=== PATIENT | female | born 2000 | race Caucasian/White ===

== ENCOUNTER 2021-03-04 01:47 | Inpatient (IN) ==
[2021-03-04] MEDS ORDERED: OXYTOCIN 30 UNITS/500 ML BAG IV PRN ×2 (02:12→03:38)
[2021-03-04] MEDS ORDERED: LACTATED RINGER'S 1,000 ML IV PRN (02:12)
--- NOTE | 2021-03-04 02:16 | History & Physical Report ---
Date of Service March 04, 2021 Assessment & Plan (1) Encounter for supervision of normal in multigravida: Plan: Admit to L&D, desires epidural. Labs, EFM/toco, ok for epidural. History of Present Illness Chief Complaint: ctx Primary Care Provider: Cleveland Jaquez MD 20yo @ 39 2/, ctx. No LOF, no VB. +fm. Ctx Q 2 min. GBS neg. Allergies Allergy/AdvReac Type Severity Reaction Status Date / Time No Known Allergies Allergy Verified 03/01/21 20:13 Home Medications Medication Instructions Recorded Confirmed Type prenat.vits,ashlee,qnk-eemf-vqscp 1 tab PO DAILY 08/14/20 03/01/21 History ferrous sulfate 325 mg (65 mg 325 mg PO DAILY 01/15/21 03/01/21 History iron) tablet (iron) Patient History Medical History (Updated 03/03/21 @ 00:07 by Marisela Brown) Anemia Smoker Varicella vaccination Surgical History (Updated 03/01/21 @ 20:13 by Jessica Molina RN) History of dental surgery S/P wisdom tooth extraction Family History Grandmother (Paternal) Breast cancer Denies family history of Ovarian cancer Colorectal cancer Social History Smoking Status: Current every day smoker Tobacco Type: Cigarettes Cigarettes Per Day: 12; Hx Alcohol Use: No Hx Substance Use: No Preferred Language: Nicaraguan Communication Ability: Effective Set Up / Operator Required: No Beliefs That Will Affect Care: None marital status: Single marital status details: Justin Mondragon (24) Current Living Situation: Family and Significant Other Current Living Situation Comment: lives with fob, son, dog, cats-mother changing litter current occupational status: unemployed Feels Safe at Home: Yes Assistive Devices: None Review of Systems All systems reviewed & are unremarkable except as noted in HPI & below Physical Exam Physical Exam: SVE 4/90/-1 per RN Constitutional: WD/WN, vitals as above Respiratory: normal respiratory effort, lungs clear to auscultation no respiratory distress Cardiovascular: Rate/Rhythm: regular rate and regular rhythm Gastrointestinal (Abdomen): Inspection/Auscultation: abdomen normal to inspection Percussion/Palpation: abdomen soft; abdomen nontender Gravid. No s/s chorio or abruption. Skin: no rashes, warm and dry Psychiatric: A+Ox3, euthymic affect Monitoring External Monitor FHT Cat 1 [place] Q 2 Coding Level of Care Code None Diagnoses Encounter for supervision of normal in multigravida Z34.80
[2021-03-04] MEDS ORDERED: ePHEDrine sulfate 50 MG/ML AMP ONE (02:32)
[2021-03-04] MEDS ORDERED: fentaNYL citrate 100 MCG/2 ML VIAL ONE (02:32)
[2021-03-04] MEDS ORDERED: SODIUM CHLORIDE 0.9% INJ 10 ML VIAL ONE (02:32)
[2021-03-04] MEDS ORDERED: BUPIVACAINE 0.25% 30 ML VIAL ONE (02:32)
[2021-03-04] MEDS ORDERED: fentaNYL 2MCG/ML ROPIVACAINE 1.25MG/ML 100 ML BAG EPI ONE (02:33)
[2021-03-04 02:57] LABS: Hematocrit (blood only) 31.5 % (37-47); Hemoglobin 9.5 g/dL (12.0-16.0); Mean Corpuscular Hemoglobin 22.8 pg (25-34); Mean Corpuscular Hgb Conc 30.2 g/dL (32-36); Mean Corpuscular Volume 75.7 fL (80-100); Mean Platelet Volume 11.1 fL (7.4-10.4); Platelet Count 218 K/uL (130-400); RDW Coefficient of Variation 16.4 % (11.5-14.5); RDW Standard Deviation 45.2 fL (36.4-46.3); Red Blood Count 4.16 M/uL (4.2-5.4); White Blood Count 11.86 K/uL (4.8-10.8)
[2021-03-04] MEDS ORDERED: MoRPHine SULFATE 10 MG/ML CARP/VIAL ONE (03:23)
[2021-03-04] MEDS ORDERED: MoRPHine SULFATE 4 MG/ML 1 ML CARP\\VIAL IV STA (03:36)
--- NOTE | 2021-03-04 03:37 | Delivery Summary ---
Vaginal Delivery Summary Date of Service March 04, 2021 Vaginal Delivery Summary [facility] Vaginal Delivery Summary: Pre-delivery diagnoses: 20yo @ 39 2 Post-delivery diagnoses: same Procedure: spontaneous vaginal delivery Surgeon: Essie Montiel DO Complications: none Findings: Viable male . Apgars: 8/9. Weight pending, please see nursery records. Estimated blood loss: 300ml Description of delivery: The patient arrived in labor and quickly progressed to complete. No time for epidural. She began to push, unable to stop. Head delivered prior to my walking into the room, and as I was entering, body spontaneously delivered. RN unwrapped baby from body cord. Large amount of meconium on mom's abdomen, patient's water never obviously broke, but baby did not deliver en cull, per RN. The baby was placed on mother's abdomen and a spontaneous cry was heard. Delayed cord clamping was employed, and the cord was doubly clamped and cut. Cord blood was obtained. The placenta was delivered spontaneously intact with a 3-vessel cord. No IV access yet, so IM pitocin given. IM methergine. The vagina was swept of clots and debris. Clots removed from uterus and bleeding improved. The uterus became firm. The cervix, vagina inspected with Sepulveda retractors and perineum was inspected and no lacerations were noted. Excellent hemostasis was observed. IV team was able to establish IV access, IV pitocin given. The mother and baby are recovering in stable and good condition in the room. Sponge and instrument counts were correct x 2. Essie Montiel DO [facility] Vaginal Delivery Charge Vaginal Delivery Codes: 78321 global code for the antepartum, delivery, and post- Delivery Type Details: [facility]
[2021-03-04] MEDS ORDERED: OXYTOCIN 10 UNITS/ML VIAL IM ONE (03:38)
[2021-03-04] MEDS ORDERED: ACETAMINOPHEN 325 MG TAB PO PRN (03:38)
[2021-03-04] MEDS ORDERED: SUPERCREAM 0.870% 15 GM JAR EXT PRN (03:38)
[2021-03-04] MEDS ORDERED: HYDROCORTISONE ACETATE 25 MG SUPP PR PRN (03:38)
[2021-03-04] MEDS ORDERED: DIPHTHERIA/TETANUS/PERTUSSIS 0.5 ML SYR/VIAL IM ONE (03:38)
[2021-03-04] MEDS ORDERED: METHYLERGONOVINE MALEATE 0.2 MG/ML AMP IM ONE (03:38)
[2021-03-04] MEDS ORDERED: BENZOCAINE 20% AER SPR 82.5 GM CAN EXT PRN (03:38)
[2021-03-04] MEDS ORDERED: oxyCODONE/ACETAMINOPHEN 5mg/325mg TAB PO PRN (03:38)
[2021-03-04] MEDS: IBUPROFEN 600 MG TAB PO PRN ×3 (08:51→20:14)
[2021-03-04] MEDS: DOCUSATE SODIUM 100 MG CAP PO SCH ×2 (08:52→20:14)
[2021-03-04] MEDS: PRENATAL VITAMIN 1 TAB PO SCH (08:53)
[2021-03-05] MEDS: IBUPROFEN 600 MG TAB PO PRN ×2 (00:06→09:02)
--- NOTE | 2021-03-05 05:16 | Obstetrical Progress Note ---
Date of Service <Jimmie Marsh - Last Filed: 03/05/21 06:57> March 05, 2021 Assessment & Plan <Jimmie Marsh DO - Last Filed: 03/05/21 06:57> (1) Encounter for care and examination after delivery: - PPD1 - A+, GBS-, RI - Vitals WNL. - Bottle feeding. - Discussed discharge with patient, patient would like to go home today after son's circumcision. <Kaylynn Damian MD - Last Filed: 03/05/21 07:00> (1) Encounter for care and examination after delivery: Subjective <Jimmie Trujillovickiferoz - Last Filed: 03/05/21 06:57> Ambulation: ambulating normally Voiding: no voiding problems Passing Gas:: Yes Diet Tolerance:: regular diet Lochia:: Small Feeding Type:: bottle feeding Current Pain Level(1-10): 0 Review of Systems Some slight abdominal cramping. Denies fever, chills, sweats Denies shortness of breath, difficulty breathing, chest pain, palpitations, chest pressure. Denies breast pain. Denies dysuria. Denies headache or changes in vision Physical Exam <Jimmie Marsh - Last Filed: 03/05/21 06:57> General: Alert, oriented. No acute distress. Cardiac: Regular rate and rhythm, no murmurs/rubs/gallops. Respiratory: Clear to auscultation bilaterally a/p, no wheezes/rales/rhonchi. No increased work of breathing. Symmetrical chest rise. No respiratory distress. Abdomen: Soft, nontender, nondistended. Bowel sounds present. Uterus: Uterine fundus firm, palpable 2 cm below umbilicus. Lower Extremities: No lower extremity edema or swelling. No deep calf pain. Tamara's negative bilaterally Results & Data ([facility]) <Jimmie Trujillovickiferoz - Last Filed: 03/05/21 06:57> Vital Signs (Past 12 Hours) Vital Signs Temp Pulse Resp BP Pulse Ox 03/04/21 23:55 36.9 C 70 16 116/79 98 03/04/21 20:10 36.7 C 75 18 123/85 <Kaylynn Damian MD - Last Filed: 03/05/21 07:00> Co-Signing Physician Notes Resident Physician Supervision Note: I interviewed and examined the patient. Discussed with Dr. Marsh and agree with findings and plan as documented in the note. Any exceptions or clarific ations are listed here: PP1 s/p , doing well. VSS, exam benign and wnl. Meeting all pp milestones. Desires d/c home today, ok from OB standpoint. F/u 6 wks for pp visit Documented By: Kaylynn Damian MD Resident Activity Tracking <Jimmie Marsh DO - Last Filed: 03/05/21 06:57> Resident Involvement: Resident Care Provided Care Provided: OB Delivery
[2021-03-05 06:31] LABS: Hematocrit (blood only) 27.7 % (37-47); Hemoglobin 8.3 g/dL (12.0-16.0)
[2021-03-05] MEDS ORDERED: FERROUS SULFATE 325 MG TAB PO SCH (09:00)
[2021-03-05] MEDS: PRENATAL VITAMIN 1 TAB PO SCH (09:02)
[2021-03-05] MEDS: DOCUSATE SODIUM 100 MG CAP PO SCH (09:03)
[2021-03-05] MEDS ORDERED: bisacodyL 5 MG TABEC PO SCH (20:00)
[2021-03-06] MEDS ORDERED: bisacodyL 10 MG SUPP PR PRN (03:38)
== END 2021-03-05 15:00 | disposition home or self-care (01) | DRG 807 ==
LOC: OPB 01:47 → 4S1 01:52 → 4S2 06:30

== ENCOUNTER 2022-03-06 07:39 | Inpatient (IN) ==
[2022-03-06] MEDS ORDERED: OXYTOCIN 30 UNITS/500 ML BAG IV PRN ×3 (08:00→18:15)
[2022-03-06] MEDS: LACTATED RINGER'S 1,000 ML IV PRN ×2 (08:39→12:41)
--- NOTE | 2022-03-06 08:57 | History & Physical Report ---
Date of Service March 06, 2022 Assessment & Plan (1) History of precipitous delivery: (2) Short interval between pregnancies affecting , antepartum: (3) Anxiety: (4) Depression: (5) Encounter for supervision of normal in multigravida, antepartum: (6) Anemia: (7) Smoker: Plan Admit to L+D for eIOL Plan to start Pitocin Covid test negative A+, GBS-, Rubella immune Fetus cat 1, +FHT moderate variability, no early or late decelerations Admission and Anticipated Discharge Date Admission Date: March 06, 2022 History of Present Illness Chief Complaint: eIOL Primary Care Provider: Cleveland Jaquez MD Regla is a 21 y/o female who is 39 weeks GA who presents for eIOL due to history of precipitous delivery. Her was complicated by short interval , anemia, and the patient is a current smoker. 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 Today she denies any leakage of fluid or bleeding, admits to some mucus/discharge. States she is feeling well today but feeling a bit anxious. OB Labs: Blood Type A Positive 09/01/21 Antibody Screen NEGATIVE 09/01/21 Hemoglobin 11.7 g/dL (12.0-16.0) L 09/01/21 Hematocrit 37.6 % (37-47) 09/01/21 Mean Corpuscular Volume 79.2 fL (80-100) L 09/01/21 Platelet Count 350 K/uL (130-400) 09/01/21 Rubella IgG Antibody Immune (Immune) 09/01/21 Rapid Plasma Reagin Nonreactive (Nonreactive) 09/01/21 Hepatitis B Surface Antigen Neg (Neg) 09/01/21 HIV (1&2) Ab and P24 Ag, 4th Gener Neg (Neg) 09/01/21 Glucose 1 Hour 50 gm Load 84 mg/dl (70-130) 12/18/20 OB Optional Labs: Chlamydia trachomatis RNA NOT DETECTED (NOT DETECTED) 09/01/21 Neisseria gonorrhoeae RNA NOT DETECTED (NOT DETECTED) 09/01/21 Labs Reviewed: declined cf/sma/afp cfdna-low risk--mln Allergies Allergy/AdvReac Type Severity Reaction Status Date / Time No Known Allergies Allergy Verified 03/05/22 15:46 Home Medications Medication Instructions Recorded Confirmed Type [id number] 400 mcg-om3 35 mg-dha 25 1 tab PO DAILY 08/15/21 03/06/22 History mg-epa 5 mg-fish oil chewable tablet gabapentin 300 mg capsule 300 mg PO BID 12/31/21 03/06/22 History Patient History Medical History (Updated 09/01/21 @ 14:48 by Kandi Mack MD, FACOG) Anemia Anemia affecting hemorrhage Precipitous delivery Smoker Varicella vaccination Surgical History (Updated 03/01/21 @ 20:13 by Jessica Molina RN) History of dental surgery S/P wisdom tooth extraction Family History (Updated 08/15/21 @ 11:14 by Lona NGO, BENSON) Grandmother (Paternal) Breast cancer Hypertension Uncle Bladder cancer Autism Grandfather (Maternal) Non-Hodgkin lymphoma Brother Autism Mother Autism Other Myocardial infarction Denies family history of Ovarian cancer Diabetes Colorectal cancer Social History (Updated 08/15/21 @ 11:16 by Lona NGO RN) Smoking Status: Current every day smoker Tobacco Type: Cigarettes Age Started Using Tobacco: 15; packs per day: 0.5; Cigarettes Per Day: 20; Second Hand Exposure: No; Hx Alcohol Use: No Hx Substance Use: No Preferred Language: Arabic Communication Ability: Effective Folder Stitcher Operator Required: No Beliefs That Will Affect Care: None marital status: Single marital status details: Justin Mondragon (25) [phone] Current Living Situation: Family and Significant Other Current Living Situation Comment: FOB, 2 kids, FOB mother and dog & cats-mother changing litter current occupational status: unemployed How many Children do You have: 3 How many Children do You have Comment: first son lives with patients mother in [place] Other Information That Helps Us Care for You: No Feels Safe at Home: Yes Safety Concerns: Feels Safe At This Time Assistive Devices: None OB History Had 3 previous pregnancies (2016, 2018, 2020), all delivered vaginally. Her most recent delivery in 2020 was a precipitous delivery and was complicated by PPH. 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 Damian) 3 cm, + cervical effacement (75%) and + station -2 OB Exam Monitor Tracing: + external FHT monitor used, + external uterine monitor used, + category I and + normal FHT variability; no early decelerations present and no late decelerations present Results & Data ([facility]) Vital Signs (Past 12 Hours) Vital Signs Temp Pulse Resp BP 03/06/22 08:55 36.5 C 18 03/06/22 08:21 96 H 125/66 03/06/22 07:51 18 Supervising Physician Co-Signing Physician Notes Resident Physician Supervision Note: I interviewed and examined the patient. Discussed with Dr. Agarwal and agree with findings and plan as documented in the note. Any exceptions or clarifications are listed here: 21 y/o at 39 wga presents for eIOL. +FM; denies ctx, LOF, VB. VSS, SVE /-2. Cat 1. Will start pit, epidural PRN. T&S due to significant anemia Documented By: Kaylynn Damian MD Resident Activity Tracking Resident Involvement: Resident Care Provided Care Provided: OB Delivery
[2022-03-06 09:04] LABS: Hematocrit (blood only) 28.8 % (34.1-44.9); Hemoglobin 8.2 g/dl (12.0-16.0); Mean Corpuscular Hemoglobin 20.6 pg (25.0-34.0); Mean Corpuscular Hgb Conc 28.5 g/dL (32.0-36.0); Mean Corpuscular Volume 72.2 fL (80.0-100.0); Mean Platelet Volume 11.5 fL (9.4-12.3); Platelet Count 160 K/uL (130-400); RDW Coefficient of Variation 16.9 % (11.5-14.5); RDW Standard Deviation 43.6 fL (36.4-46.3); Red Blood Count 3.99 M/uL (3.93-5.22); White Blood Count 10.14 K/ul (4.8-10.8)
[2022-03-06 09:05] LABS: Platelet Estimate Normal (Normal)
[2022-03-06] MEDS ORDERED: ePHEDrine sulfate 50 MG/ML AMP ONE (12:15)
--- NOTE | 2022-03-06 12:15 | Labor Progress Brief Note ---
Date of Service March 06, 2022 Subjective Starting to be uncomfortable, not sure if she wants epidural yet Assessment & Plan (1) Encounter for supervision of normal in multigravida, antepartum: (2) Anemia: Plan 21 y/o at 39 wga presents for eIOL VSS Fetus cat 1 Labor - pit at 10 GBS neg desires epidural now Admission and Anticipated Discharge Date Admission Date: March 06, 2022 Physical Exam Genitourinary: Manual OB Exam: + cervical dilation 4 cm, + cervical effacement 70% and + station -2 OB Exam Monitor Tracing: + external FHT monitor used, + external uterine monitor used (q3-4) and + category I (120/mod/+accel/-decel) Results & Data ([facility]) Vital Signs (Past 12 Hours) Vital Signs Temp Pulse Resp BP 03/06/22 08:55 97.7 F 18 03/06/22 11:35 97.7 F 80 18 127/73 03/06/22 10:19 85 132/75 03/06/22 08:21 96 H 125/66 03/06/22 07:51 18 Coding Level of Care Code None Diagnoses Encounter for supervision of normal in multigravida, antepartum Z34.80 Anemia D64.9
[2022-03-06] MEDS ORDERED: LIDOCAINE 2%/EPINEPHRINE 1:200,000 20 ML SDV ONE (12:16)
[2022-03-06] MEDS ORDERED: fentaNYL 2MCG/ML ROPIVACAINE 1.25MG/ML 100 ML BAG EPI ONE (12:16)
[2022-03-06] MEDS ORDERED: BUPIVACAINE 0.25% 30 ML VIAL ONE (12:16)
[2022-03-06] MEDS ORDERED: fentaNYL citrate 100 MCG/2 ML VIAL ONE (12:16)
[2022-03-06] MEDS ORDERED: SODIUM CHLORIDE 0.9% INJ 10 ML VIAL ONE (12:16)
[2022-03-06] MEDS ORDERED: ONDANSETRON INJ 2 MG/ML 2 ML VIAL IV PRN (13:10)
[2022-03-06] MEDS ORDERED: diphenhydrAMINE 50 MG/ML VIAL IV PRN (13:10)
[2022-03-06] MEDS ORDERED: ePHEDrine sulfate 50 MG/ML AMP IV PRN (13:10)
[2022-03-06] MEDS ORDERED: NALOXONE HCL 1 MG in SODIUM CHLORIDE 0.9% 1000ML 1,000 ML IV PRN (13:10)
[2022-03-06] MEDS ORDERED: NALOXONE HCL 0.4 MG/1 ML VIAL/CARP IV PRN (13:10)
[2022-03-06] MEDS ORDERED: fentaNYL 2MCG/ML ROPIVACAINE 1.25MG/ML 100 ML BAG EPI PRN (13:10)
[2022-03-06] MEDS ORDERED: NALBUPHINE HCL INJ 10 MG/ML AMP IV PRN (13:10)
--- NOTE | 2022-03-06 13:10 | Anesthesiology Consultation ---
Date of Service March 06, 2022 Assessment & Plan Chart Review Chart Review: Patient NOT seen in Pre Admission Testing and Acceptable Risk for Labor Epidural Consults Requested none ASA ASA2 Proposed Anesthesia Anesthesia Type: Labor Epidural Risk / Benefits Reviewed With: PT / POA / Parent / Guardian, Accepts Plan and Informed Consent Obtained History Height/Weight Height: 5 ft 3 in Weight: 94.801 kg Allergies Allergy/AdvReac Type Severity Reaction Status Date / Time No Known Allergies Allergy Verified 03/05/22 15:46 Medications Home Medications Medication Instructions Recorded Confirmed Last Taken [id number] 400 mcg-om3 35 mg-dha 25 1 tab PO DAILY 08/15/21 03/06/22 Unknown mg-epa 5 mg-fish oil chewable tablet gabapentin 300 mg capsule 300 mg PO BID 12/31/21 03/06/22 03/06/22 08:00 Active Medications Generic Name Dose Route Start Last Admin Trade Name Freq PRN Reason Stop Dose Admin Oxytocin 30 units in 500 mls @ 10 mls/hr 03/06/22 08:00 03/06/22 11:32 Pitocin IV 03/08/22 07:59 0.6 units/hr .Q24H PRN 10 mls/hr Labor Induction/Augmentation Titration Protocol 0.6 UNITS/HR Lactated Ringer's 1,000 mls @ 125 mls/hr 03/06/22 08:00 03/06/22 12:41 Lr IV 03/08/22 07:59 125 mls/hr .Q8H PRN Administration L&D Protocol Protocol Past Medical History Medical History (Updated 09/01/21 @ 14:48 by Kandi Mack MD, FACOG) Anemia Anemia affecting hemorrhage Precipitous delivery Smoker Varicella vaccination Exercise / Class Metabolic Activity II 4-5 Yardwork/Stairs/Walk up hill Past Family History Family History (Updated 08/15/21 @ 11:14 by Lona NGO RN) Grandmother (Paternal) Breast cancer Hypertension Uncle Bladder cancer Autism Grandfather (Maternal) Non-Hodgkin lymphoma Brother Autism Mother Autism Other Myocardial infarction Denies family history of Ovarian cancer Diabetes Colorectal cancer Past Surgical History Surgical History (Updated 03/01/21 @ 20:13 by Jessica Molina RN) History of dental surgery S/P wisdom tooth extraction Past Anesthesia History No Hx of Anesthesia Complications and No Family Hx of Anesthesia Complications History of PONV No Hx of PONV and No Hx of Motion Sickness Social History Smoking Status: Current every day smoker tobacco type: cigarettes Smoking cigarettes per day: 20 Hx Alcohol Use: No Hx Substance Use: No substance use type: does not use Physical Exam Vital Signs Last Vital Signs Temp 36.5 C 03/06/22 11:35 Pulse 75 03/06/22 13:07 Resp 18 03/06/22 12:35 BP 116/60 03/06/22 13:07 Pulse Ox 100 03/06/22 13:03 ENMT Mouth: no dentition abnormality Thyromental Distance: > or= 3.5 Finger Breadths Mallampati Class: II Neck normal visual inspection Respiratory normal respiratory effort Auscultation: lungs clear to auscultation bilaterally Cardiovascular Rate/Rhythm: regular rate and regular rhythm Psychiatric Orientation: alert Testing Laboratory Results 03/06/22 08:12 Blood Type A Positive 03/06/22 09:54 Antibody Screen NEGATIVE 03/06/22 09:54
--- NOTE | 2022-03-06 17:23 | Delivery Summary ---
Vaginal Delivery Summary Date of Service March 06, 2022 Vaginal Delivery Summary Used 39+ weeks initially 3 cm Pitocin started requested epidural artificial rupture of membranes and then delivered over an intact peritoneum and anterior occiput but position patient pushed for only 1 contraction mouth and then nares suctioned clear fluid no nuchal cord gentle traction no excessive force live vigorous male cord clamped and cut cord blood obtained placenta removed with traction IV Pitocin started uterine tone improved estimated blood loss 150 mL sponge and instrument counts correct
[2022-03-06] MEDS ORDERED: miSOPROStoL 200 MCG TAB PR ONE (17:48)
[2022-03-06] MEDS ORDERED: oxyCODONE/ACETAMINOPHEN 5mg/325mg TAB PO PRN (18:15)
[2022-03-06] MEDS ORDERED: HYDROCORTISONE ACETATE 25 MG SUPP PR PRN (18:15)
[2022-03-06] MEDS ORDERED: bisacodyL 10 MG SUPP PR PRN (18:15)
[2022-03-06] MEDS ORDERED: BENZOCAINE 20% AER SPR 82.5 GM CAN EXT PRN (18:15)
[2022-03-06] MEDS ORDERED: DIPHTHERIA/TETANUS/PERTUSSIS 0.5 ML SYR/VIAL IM ONE (18:15)
[2022-03-06] MEDS: ACETAMINOPHEN 325 MG TAB PO PRN (19:11)
[2022-03-06] MEDS: IBUPROFEN 600 MG TAB PO PRN ×2 (19:11→22:53)
--- NOTE | 2022-03-06 19:48 | Anesthesia Procedure Note ---
Date of Service March 06, 2022 Anesthesia Post Epidural Note Vital Signs Vital Signs: Temp Pulse Resp BP Pulse Ox 37.0 C 91 H 18 122/61 98 03/06/22 17:35 03/06/22 19:46 03/06/22 18:35 03/06/22 19:46 03/06/22 17:08 Notes Mental Status: alert / awake / arousable Nausea / Vomiting: adequately controlled Pain: adequately controlled Airway Patency, RR, SpO2: stable & adequate BP & HR: stable & adequate Hydration State: stable & adequate Neuraxial Anesthesia: was administered and sensory block is resolving Anesthetic Complications: no major complications apparent and Pt Satisfied with anesthetic care Epidural: Removed without complications and With tip intact
[2022-03-06] MEDS: GABAPENTIN 300 MG CAP PO SCH (21:22)
[2022-03-06] MEDS: DOCUSATE SODIUM 100 MG CAP PO SCH ×2 (22:17→22:53)
[2022-03-07] MEDS: IBUPROFEN 600 MG TAB PO PRN ×4 (04:06→12:19)
--- NOTE | 2022-03-07 06:45 | Obstetrical Progress Note ---
Date of Service <Viridiana Agarwal DO - Last Filed: 03/07/22 07:47> March 07, 2022 Assessment & Plan <Viridiana Agarwal DO - Last Filed: 03/07/22 07:47> (1) History of precipitous delivery: (2) Short interval between pregnancies affecting , antepartum: (3) Encounter for supervision of normal in multigravida, antepartum: (4) Smoker: (5) Anemia: Plan s/p PPD 1: -Vital signs reviewed and WNL, Tmax at 37.1 -Hemoglobin reviewed, 8.2 (03/06) -A+, GBS-, rubella immune -Encourage ambulation, monitor and treat pain PRN, monitor lochia -Return to regular diet -Will monitor the chest heaviness today, if improves may discharge after 24 hr from delivery. <Poornima Dawn MD, FACOG - Last Filed: 03/07/22 07:48> (1) History of precipitous delivery: (2) Short interval between pregnancies affecting , antepartum: (3) Encounter for supervision of normal in multigravida, antepartum: (4) Smoker: (5) Anemia: Subjective <DO Trent Templeton Last Filed: 03/07/22 07:47> Regla is a 21 y/o female who is PPD #1 following delivery at 39 weeks. Her was complicated by history of precipitous delivery, short interval , anemia, and status as a current smoker. Patient was seen and examined at bedside. She reports feeling well overall this morning. Some abdominal cramping but pain well managed on analgesics. Some burning with urintation. Tolerating meals overnight and able to ambulate some. Has some persistent lochia with some improvement this morning. Admits to some chest heaviness/trouble breathing when she stands, states this started after delivery. No issue while laying in bed, only occurs while standing/ambulating. Constitutional: no fever, no chills or no sweats Respiratory: no cough, no dyspnea or no wheezing Cardiovascular: no palpitations or no calf pain Breast: no breast pain Neurologic: no headache(s) Physical Exam <Viridiana Agarwal DO - Last Filed: 03/07/22 07:47> Constitutional WD/WN, vitals as above no acute distress Respiratory Auscultation: lungs clear to auscultation bilaterally; no rales, no rhonchi and no wheezes Cardiovascular RRR, no murmur, no edema Extremities: no calf tenderness and no edema Negative Tamara's sign bilaterally. Gastrointestinal (Abdomen) Inspection/Auscultation: normal bowel sounds Genitourinary Uterine fundus firm, palpable below the umbilicus. Results & Data ([facility]) <Viridiana Agarwal DO - Last Filed: 03/07/22 07:47> Vital Signs (Past 12 Hours) Vital Signs Temp Pulse Pulse Resp BP BP Pulse Ox 03/07/22 04:10 36.4 C L 75 18 122/84 100 03/06/22 23:00 37 C 93 H 18 131/84 03/06/22 20:40 37.1 C 91 H 18 118/79 03/06/22 19:56 88 117/58 L 03/06/22 19:46 91 H 122/61 03/06/22 19:36 86 122/60 03/06/22 19:26 85 125/73 03/06/22 19:16 85 128/72 03/06/22 19:06 88 126/72 03/06/22 18:56 86 123/72 03/06/22 18:46 97 H 122/73 <Poornima Dawn MD, FACOG - Last Filed: 03/07/22 07:48> Co-Signing Physician Notes Resident Physician Supervision Note: I was present with [Name of resident] during the history and exam. I discussed the case with the resident and agree with the findings and plan as documented in the note. Any exceptions or clarifications are listed here: [None] Documented By: Poornima Dawn MD, FACOG Resident Activity Tracking <Viridiana Agarwal DO - Last Filed: 03/07/22 07:47> Resident Involvement: Resident Care Provided Care Provided: OB Delivery
[2022-03-07] MEDS ORDERED: PRENATAL VITAMIN 1 TAB PO SCH (08:00)
[2022-03-07] MEDS: DOCUSATE SODIUM 100 MG CAP PO SCH (08:08)
[2022-03-07] MEDS: GABAPENTIN 300 MG CAP PO SCH (08:08)
[2022-03-07 10:11] LABS: Hematocrit (blood only) 24.5 % (34.1-44.9); Mean Corpuscular Hemoglobin 20.5 pg (25.0-34.0); Mean Corpuscular Hgb Conc 28.6 g/dL (32.0-36.0); Mean Corpuscular Volume 71.8 fL (80.0-100.0); Mean Platelet Volume 11.8 fL (9.4-12.3); Platelet Count 163 K/uL (130-400); RDW Standard Deviation 43.8 fL (36.4-46.3); Red Blood Count 3.41 M/uL (3.93-5.22); White Blood Count 11.37 K/ul (4.8-10.8)
[2022-03-07] MEDS ORDERED: SODIUM CHLORIDE 0.9% 250 ML IV PRN (10:31)
--- NOTE | 2022-03-07 10:33 | Communication Note ---
Date of Service: March 07, 2022 Pt's H/H returned at 7. Met w/ pt - she notes more tiredness, some chest heaviness when she is ambulating/up for longer periods of time. Denies any at r est. Small to mod lochia. Denies lightheadedness/dizziness. VSS. Discussed suspect her symptoms are related to anemia and offered blood transfusion given symptoms. Discussed risks including infection, allergic reaction, trali. Discussed risks of declining including worsening fatigue, SOB, palpitations, stroke, heart attack. Discussed alternatives of iron supplementation however would not take effect as quickly. After extensive discussion, pt desires to proceed with blood transfusion as she strongly desires d/c home today. Consent signed after all questions answered to apparent satisfaction. Will re-assess following transfusion to determine if post transfusion lab indicated, discharge status, etc
[2022-03-07] MEDS ORDERED: diphenhydrAMINE Capsule 25 MG CAP PO ONE (10:39)
[2022-03-07] MEDS: ACETAMINOPHEN 325 MG TAB PO PRN (11:02)
--- NOTE | 2022-03-07 15:28 | Communication Note ---
Date of Service: March 07, 2022 Pt re-evaluated following 1u pRBC transfusion. A little groggy from pre- medicating benadryl but going away. Has been up multiple times and denies any of the previously noted chest heaviness that she had reported previously, c/w suspicion that symptoms are anemia related rather than cardiac or pulm in nature. Will get post transfusion H/H but as she is feeling much better I think still ok to d/c later today. Discussed importance of iron while at home and she verbalized understanding
[2022-03-07 15:56] LABS: Hematocrit (blood only) 26.9 % (34.1-44.9); Hemoglobin 8.3 g/dl (12.0-16.0)
[2022-03-07] MEDS ORDERED: bisacodyL 5 MG TABEC PO SCH (20:00)
== END 2022-03-07 18:42 | disposition home or self-care (01) | DRG 807 ==
LOC: 4S1 07:39 → 4E2 20:10

== ENCOUNTER 2023-08-27 08:04 | Inpatient (IN) ==
[2023-08-27] MEDS ORDERED: LIDOCAINE 1% LOCAL 20 ML VIAL INFIL PRN (08:13)
[2023-08-27 08:53] LABS: Hematocrit (blood only) 31.7 % (37.0-47.0); Hemoglobin 9.1 g/dl (12.0-16.0); Mean Corpuscular Hemoglobin 20.6 pg (25.0-34.0); Mean Corpuscular Hgb Conc 28.7 g/dL (32.0-36.0); Mean Corpuscular Volume 71.9 fL (80.0-100.0); Mean Platelet Volume 11.4 fL (9.4-12.4); Platelet Count 206 K/uL (130-400); RDW Standard Deviation 46.1 fL (36.4-46.3); Red Blood Count 4.41 M/uL (4.20-5.40); White Blood Count 8.59 K/ul (4.8-10.8)
[2023-08-27] MEDS ORDERED: SODIUM CHLORIDE 0.9% 250 ML IV PRN (08:56)
[2023-08-27] MEDS: LACTATED RINGER'S 1,000 ML IV PRN (10:03)
[2023-08-27] MEDS: OXYTOCIN 30 UNITS/NSS 30 UNITS/500 ML BAG IV PRN ×3 (10:05→18:42)
--- NOTE | 2023-08-27 13:45 | History & Physical Report ---
Date of Service August 27, 2023 Assessment & Plan (1) Tobacco smoking affecting : Plan: Regla is a 23-year-old G5, P4 currently at 39 weeks 0 days gestational age presents for elective induction of labor. 1. Fetus: Category 1 tracing 2. Labor: Will start with oxytocin and will AROM when appropriate. 3. GBS negative 4. Vitals within normal limits (2) History of precipitous delivery: (3) Encounter for supervision of normal in multigravida, antepartum: Admission and Anticipated Discharge Date Admission Date: August 27, 2023 History of Present Illness Primary Care Provider: Cleveland Jaquez MD Regla is a 23-year-old G5, P4 currently at 39 weeks 0 days gestational age presents for elective induction of labor for history of precipitous delivery. has been complicated by tobacco use during and noncompliance with recommended care. OB Labs: Blood Type A Positive 02/24/23 Antibody Screen NEGATIVE 02/24/23 Hemoglobin 11.4 g/dl (12.0-16.0) L 02/24/23 Hematocrit 35.9 % (37.0-47.0) L 02/24/23 Mean Corpuscular Volume 79.2 fL (80.0-100.0) L 02/24/23 Platelet Count 263 K/uL (130-400) 02/24/23 Rubella IgG Antibody Equivocal (Immune) L 02/24/23 Rapid Plasma Reagin Nonreactive (Nonreactive) 02/24/23 Hepatitis B Surface Antigen Neg (Neg) 09/01/21 Hepatitis B Surface Antigen. NON-REACTIVE (NON-REACTIVE) 02/24/23 Hepatitis C Antibody Neg (Neg) 09/01/21 Hepatitis C Antibody (EIA) NON-REACTIVE (NON-REACTIVE) 02/24/23 HIV (1&2) Ab and P24 Ag, 4th Gener Neg (Neg) 09/01/21 HIV (1&2) Ag and Ab Confirmation NON-REACTIVE (NON-REACTIVE) 02/24/23 Glucose 1 Hour 50 gm Load 109 mg/dl (70-130) 12/31/21 OB Optional Labs: Chlamydia trachomatis RNA Not Detected (NotDetected) 01/27/23 Neisseria gonorrhoeae RNA Not Detected (NotDetected) 01/27/23 Labs Reviewed: declined cf/sma/afp cfdna-low risk--mln msafp declines --smp Allergies Allergy/AdvReac Type Severity Reaction Status Date / Time No Known Allergies Allergy Verified 08/26/23 11:00 Home Medications Medication Instructions Recorded Confirmed Type gabapentin 800 mg tablet 800 mg PO BID 08/27/23 08/27/23 History Patient History Medical History (Updated 08/27/23 @ 13:44 by Jalen Ochoa MD) Degenerative joint disease Lumbar herniated disc Osteoarthritis Bipolar 1 disorder Panic Precipitous delivery hemorrhage Encounter for care and examination after delivery Anemia Smoker Anemia affecting Encounter for supervision of normal in multigravida Varicella vaccination Surgical History History of dental surgery S/P wisdom tooth extraction Family History (Updated 01/25/23 @ 10:57 by Alyson Mack, BENSON) Grandmother (Paternal) Breast cancer Hypertension Colorectal cancer Uncle Autism Bladder cancer Grandfather (Maternal) Non-Hodgkin lymphoma Brother Autism Mother Autism Other Myocardial infarction Denies family history of Ovarian cancer Diabetes Social History (Updated 01/25/23 @ 10:58 by Alyson Mack RN) Smoking Status: Current every day smoker Tobacco Type: Cigarettes Age Started Using Tobacco: 15; packs per day: 0.5; Cigarettes Per Day: 10; Second Hand Exposure: No; Do You Dip or Chew Tobacco: No; Hx Alcohol Use: No Hx Substance Use: No Preferred Language: Kyrgyz Communication Ability: Effective Attractions Associate Required: No Beliefs That Will Affect Care: None marital status: Single marital status details: Justin Mondragon [phone] Current Living Situation: Significant Other Current Living Situation Comment: FOB, 4 kids, FOB mother and 3 dog & 5 cats- mother changing litter current occupational status: unemployed How many Children do You have: 4 Other Information That Helps Us Care for You: No Feels Safe at Home: Yes Safety Concerns: Feels Safe At This Time Assistive Devices: None Physical Exam Genitourinary: normal external appearance Speculum/Bimanual Exam: normal appearance of the vagina OB Exam Abdomen: + vertex Manual OB Exam: + cervical dilation 2 cm, + cervical effacement 50% and + station -2 OB Exam Monitor Tracing: + external FHT monitor used, + external uterine monitor used and + category I Results & Data Vital Signs (Past 12 Hours) Vital Signs Temp Pulse Resp BP 08/27/23 11:30 18 08/27/23 11:30 18 08/27/23 11:15 36.7 C 08/27/23 11:00 20 08/27/23 11:00 20 08/27/23 10:58 77 116/68 08/27/23 10:30 20 08/27/23 10:30 20 08/27/23 10:03 83 124/77 08/27/23 08:27 86 120/76 08/27/23 08:00 36.8 C 20 Coding Level of Care Code None Diagnoses Tobacco smoking affecting in third trimester O99.333 Trimester: third trimester History of precipitous delivery Z87.59 Encounter for supervision of normal in multigravida, antepartum Z34.80 (1) Tobacco smoking affecting Trimester: third trimester Qualified Code(s): O99.333 - Smoking (tobacco) complicating , third trimester
[2023-08-27] MEDS: BUPIVACAINE 0.25% PF 30 ML VIAL ONE (13:50)
[2023-08-27] MEDS: fentANYL 2 MCG/ML BUPIVacaine 0.125%-NSS 100ML BAG ONE (13:50)
[2023-08-27] MEDS: LIDOCAINE 2%/EPINEPHRINE 1:200,000 20 ML PF ONE (13:51)
[2023-08-27] MEDS: SODIUM CHLORIDE 0.9% PF INJ 10 ML VIAL ONE (13:51)
[2023-08-27] MEDS ORDERED: SODIUM CHLORIDE 0.9% PF INJ 10 ML VIAL EPI PRN (13:56)
[2023-08-27] MEDS ORDERED: fentANYL 2 MCG/ML BUPIVacaine 0.125%-NSS 100ML BAG EPI PRN (13:56)
[2023-08-27] MEDS ORDERED: ROPIVACAINE 0.5% PF 5 MG/ML 20 ML VIAL EPI PRN (13:56)
[2023-08-27] MEDS ORDERED: diphenhydrAMINE 50 MG/ML VIAL IV PRN (13:56)
[2023-08-27] MEDS ORDERED: LIDOCAINE 2% MPF LOCAL 5 ML VIAL EPI PRN (13:56)
[2023-08-27] MEDS ORDERED: fentaNYL citrate PF 100 MCG/2 ML VIAL EPI PRN (13:56)
[2023-08-27] MEDS ORDERED: BUPIVACAINE 0.25% PF 30 ML VIAL EPI PRN (13:56)
[2023-08-27] MEDS ORDERED: NALOXONE HCL 1 MG in SODIUM CHLORIDE 0.9% 1,000 ML IV PRN (13:56)
[2023-08-27] MEDS ORDERED: ONDANSETRON INJ 2 MG/ML 2 ML VIAL IV PRN (13:56)
[2023-08-27] MEDS ORDERED: ePHEDrine sulfate 50 MG/ML AMP IV PRN (13:56)
[2023-08-27] MEDS ORDERED: NALOXONE HCL 0.4 MG/1 ML VIAL/CARP IV PRN (13:56)
[2023-08-27] MEDS ORDERED: NALBUPHINE HCL 5 MG in SYRINGE 0 ML IV PRN (13:56)
--- NOTE | 2023-08-27 13:56 | Anesthesiology Consultation ---
Date of Service August 27, 2023 Assessment & Plan Chart Review Chart Review: Acceptable Risk for Surgery and Patient NOT seen in Pre Admission Testing Consults Requested none ASA ASA2 Proposed Anesthesia Anesthesia Type: Labor Epidural Risk / Benefits Reviewed With: PT / POA / Parent / Guardian, Accepts Plan and Informed Consent Obtained History Height/Weight Height: 5 ft 3 in Weight: 96.615 kg Allergies Allergy/AdvReac Type Severity Reaction Status Date / Time No Known Allergies Allergy Verified 08/26/23 11:00 Medications Home Medications Medication Instructions Recorded Confirmed Last Taken gabapentin 800 mg tablet 800 mg PO BID 08/27/23 08/27/23 08/27/23 Active Medications Generic Name Dose Route Start Last Admin Trade Name Freq PRN Reason Stop Dose Admin Oxytocin 30 units in 500 mls @ 8 mls/hr 08/27/23 08:13 08/27/23 11:55 Pitocin 30 Units/Nss IV 08/29/23 08:12 0.48 units/hr .Q24H PRN 8 mls/hr Labor Induction/Augmentation Titration Protocol 0.48 UNITS/HR Lactated Ringer's 1,000 mls @ 125 mls/hr 08/27/23 08:13 08/27/23 13:28 Lr IV 08/29/23 08:12 125 mls/hr .Q8H PRN Infusion L&D Protocol Protocol Past Medical History Medical History (Updated 08/27/23 @ 13:44 by Jalen Ochoa MD) Degenerative joint disease Lumbar herniated disc Osteoarthritis Bipolar 1 disorder Panic Precipitous delivery hemorrhage Encounter for care and examination after delivery Anemia Smoker Anemia affecting Encounter for supervision of normal in multigravida Varicella vaccination Exercise / Class Metabolic Activity II 4-5 Yardwork/Stairs/Walk up hill Past Family History Family History (Updated 01/25/23 @ 10:57 by Alyson Mack RN) Grandmother (Paternal) Breast cancer Hypertension Colorectal cancer Uncle Autism Bladder cancer Grandfather (Maternal) Non-Hodgkin lymphoma Brother Autism Mother Autism Other Myocardial infarction Denies family history of Ovarian cancer Diabetes Past Surgical History Surgical History History of dental surgery S/P wisdom tooth extraction Past Anesthesia History No Hx of Anesthesia Complications and No Family Hx of Anesthesia Complications History of PONV No Hx of PONV and No Hx of Motion Sickness Social History Smoking Status: Current every day smoker tobacco type: cigarettes Smoking cigarettes per day: 10 Do You Dip or Chew Tobacco: No Hx Alcohol Use: No Hx Substance Use: No substance use type: does not use Physical Exam Vital Signs Last Vital Signs Temp 36.7 C 08/27/23 11:15 Pulse 74 08/27/23 13:54 Resp 20 08/27/23 12:30 BP 142/65 H 08/27/23 13:54 Pulse Ox 98 08/27/23 13:51 ENMT Mouth: no dentition abnormality Thyromental Distance: > or= 3.5 Finger Breadths Mallampati Class: II Neck normal visual inspection Respiratory normal respiratory effort Auscultation: lungs clear to auscultation bilaterally Cardiovascular Rate/Rhythm: regular rate and regular rhythm Psychiatric Orientation: alert Testing Laboratory Results 08/27/23 08:16 Blood Type A Positive 08/27/23 08:16 Antibody Screen NEGATIVE 08/27/23 08:16
[2023-08-27] MEDS: fentaNYL citrate PF 100 MCG/2 ML VIAL ONE (14:08)
[2023-08-27] MEDS: BUPIVACAINE 0.25% PF 30 ML VIAL EPI STA (15:05)
[2023-08-27] MEDS: fentaNYL citrate PF 100 MCG/2 ML VIAL EPI STA (15:05)
[2023-08-27] MEDS: SODIUM CHLORIDE 0.9% PF INJ 10 ML VIAL EPI STA (15:06)
[2023-08-27] MEDS: LIDOCAINE 2%/EPINEPHRINE 1:200,000 20 ML PF EPI STA (15:06)
[2023-08-27] MEDS: miSOPROStoL 200 MCG TAB ONE (15:52)
--- NOTE | 2023-08-27 16:03 | Delivery Summary ---
Vaginal Delivery Summary Date of Service August 27, 2023 Vaginal Delivery Summary Patient progressed to 10 cm dilated 100% effaced +2 station pushed over intact perineum with epidural anesthesia and delivered a viable female with weight and Apgars pending. Head of the delivered in WADE position and repositioned to right transverse. No nuchal cord was noted. Body shoulders quickly followed. was noted to be vigorous upon delivery and a 1 minute delayed cord clamping was initiated. Cord was double clamped and cut. remained in maternal abdomen. Cord blood was obtained. Attention was turned to delivery of placenta which delivered intact with three-vessel cord gentle cord traction. Inspection of perineum vagina cervix there is noted to be no lacerations. Bladder was drained for 100 mL. 800 mcg of Cytotec were placed per rectum for bleeding prevention due to prior history of heavy bleeding. Sponge and instrument counts were correct at the completion of the case. Both mother and stable in the immediate postdelivery period. [facility] [place] Vaginal Delivery Charge Delivery Type Details: [facility])
[2023-08-27] MEDS ORDERED: miSOPROStoL 200 MCG TAB PR ONE (17:33)
[2023-08-27] MEDS ORDERED: HYDROCORTISONE ACETATE 25 MG SUPP PR PRN (17:33)
[2023-08-27] MEDS ORDERED: bisacodyL 10 MG SUPP PR PRN (17:33)
[2023-08-27] MEDS ORDERED: ACETAMINOPHEN 325 MG TAB PO PRN (17:33)
[2023-08-27] MEDS: ePHEDrine sulfate 50 MG/ML AMP ONE (17:35)
[2023-08-27] MEDS: METHYLERGONOVINE MALEATE 0.2 MG/ML AMP IM ONE (17:45)
[2023-08-27] MEDS: IBUPROFEN 600 MG TAB PO PRN (18:03)
[2023-08-27 18:14] LABS: Hematocrit (blood only) 26.7 % (37.0-47.0); Hemoglobin 7.6 g/dl (12.0-16.0); Mean Corpuscular Hemoglobin 21.1 pg (25.0-34.0); Mean Corpuscular Hgb Conc 28.5 g/dL (32.0-36.0); Platelet Count 196 K/uL (130-400); RDW Coefficient of Variation 17.8 % (11.5-14.5); RDW Standard Deviation 47.1 fL (36.4-46.3); Red Blood Count 3.61 M/uL (4.20-5.40)
[2023-08-27 18:42] LABS: INR 0.9 (0.9-1.1); Partial Thromboplastin Ratio 0.8; Partial Thromboplastin Time 22 Seconds (21-31)
--- NOTE | 2023-08-27 19:02 | Communication Note ---
Date of Service: August 27, 2023 Epidural worked very well for labor. She has a history of PP hemorrhage requiring transfusion. Approx 1hr after delivery, the patient passed ~500cc of clot from the vagina and vomited. Hemostasis appears to be adequate currently. Given the history and recent bleeding, the epidural will be left in place overnight incase an urgent procedure for hemorrhage is needed.
--- NOTE | 2023-08-27 19:04 | Obstetrical Progress Note ---
Date of Service August 27, 2023 Assessment & Plan Admission and Anticipated Discharge Date Admission Date: August 27, 2023 Subjective Presented to bedside with passage of clots. Upon presentation there is noted to be approximately 400- 500 mL of blood and clots noted. Uterus was evacuated additional clot noted. The Chux and clots/blood were weighed at 450 mL. Patient was given Methergine and continued uterine massage and uterus was noted to be firm at 3 cm below umbilicus. Minimal additional bleeding was noted. Bleeding appeared atony related. CBC and coags ordered. Will continue with a 24-hour Methergine course. Will also dose additional bag of Pitocin Results & Data Vital Signs (Past 12 Hours) Vital Signs Temp Pulse Resp BP Pulse Ox 08/27/23 18:44 90 89 L 08/27/23 18:41 90 98 08/27/23 18:38 91 H 129/72 08/27/23 18:36 90 99 08/27/23 18:31 90 99 08/27/23 18:26 100 08/27/23 18:26 97 H 08/27/23 18:26 93 H 121/58 L 08/27/23 18:21 90 100 08/27/23 18:16 98 H 100 08/27/23 18:06 90 100 08/27/23 18:04 94 H 149/68 H 08/27/23 18:01 97 H 99 08/27/23 17:56 96 H 100 08/27/23 17:55 96/56 L 08/27/23 17:53 92/60 L 08/27/23 17:51 93 H 100 08/27/23 17:46 112 H 100 08/27/23 17:41 115 H 89/53 L 08/27/23 17:40 142 H 93/40 L 08/27/23 17:39 26 H 08/27/23 17:39 73 96/44 L 08/27/23 17:33 108 H 152/60 H 08/27/23 17:18 87 139/65 08/27/23 17:09 20 08/27/23 17:03 78 131/59 L 08/27/23 16:48 85 145/64 H 08/27/23 16:39 16 08/27/23 16:30 75 146/70 H 08/27/23 16:24 20 08/27/23 16:24 83 135/92 08/27/23 16:09 18 08/27/23 16:09 75 132/81 08/27/23 15:53 20 08/27/23 15:53 83 148/70 H 08/27/23 15:43 94 H 90 08/27/23 15:41 84 100 08/27/23 15:36 75 100 08/27/23 15:31 76 99 08/27/23 15:30 69 18 122/62 08/27/23 15:26 74 99 08/27/23 15:21 74 98 08/27/23 15:17 70 116/57 L 08/27/23 15:16 72 98 08/27/23 15:11 83 100 08/27/23 15:06 78 97 08/27/23 15:01 75 97 08/27/23 15:00 20 08/27/23 15:00 20 08/27/23 14:57 74 138/67 08/27/23 14:56 74 97 08/27/23 14:52 72 139/69 08/27/23 14:51 75 96 08/27/23 14:47 78 137/76 08/27/23 14:46 74 97 08/27/23 14:41 99 08/27/23 14:41 79 08/27/23 14:41 77 136/73 08/27/23 14:36 83 137/74 99 08/27/23 14:35 36.7 C 08/27/23 14:31 78 137/64 98 08/27/23 14:30 20 08/27/23 14:30 20 08/27/23 14:26 72 134/66 98 08/27/23 14:21 78 136/66 98 08/27/23 14:18 75 138/78 08/27/23 14:16 80 98 08/27/23 14:12 74 137/65 08/27/23 14:11 74 99 08/27/23 14:07 75 135/64 08/27/23 14:06 76 99 08/27/23 14:05 20 08/27/23 14:05 20 08/27/23 14:02 75 130/68 08/27/23 14:01 79 97 08/27/23 14:00 20 08/27/23 14:00 20 08/27/23 13:56 78 133/57 L 98 08/27/23 13:55 20 08/27/23 13:55 20 08/27/23 13:54 74 142/65 H 08/27/23 13:52 80 128/65 08/27/23 13:51 76 98 08/27/23 13:50 80 139/63 08/27/23 13:48 85 157/105 H 08/27/23 13:46 98 08/27/23 13:46 98 H 08/27/23 13:46 57 L 139/90 08/27/23 13:43 101 H 91 08/27/23 13:41 95 H 99 08/27/23 13:38 116 H 92 08/27/23 13:36 96 H 98 08/27/23 13:32 97 H 137/71 08/27/23 13:31 94 H 100 08/27/23 13:26 82 100 08/27/23 13:21 80 100 08/27/23 13:16 80 100 08/27/23 13:12 75 125/73 08/27/23 13:11 78 100 08/27/23 12:59 75 122/73 08/27/23 12:30 20 08/27/23 12:30 20 08/27/23 11:54 18 08/27/23 11:54 18 08/27/23 11:54 80 120/59 L 08/27/23 11:30 18 08/27/23 11:30 18 08/27/23 11:15 36.7 C 08/27/23 11:00 20 08/27/23 11:00 20 08/27/23 10:58 77 116/68 08/27/23 10:30 20 08/27/23 10:30 20 08/27/23 10:03 83 124/77 08/27/23 08:27 86 120/76 08/27/23 08:00 36.8 C 20 PG Care Time/CCT Total # of Minutes Spent Total Time Spent with Patient: Total time spent is greater than 50% in coordination of care (as documented) at patient's floor/unit and/or counseling patient: Coding Level of Care Code None
[2023-08-27] MEDS: METHYLERGONOVINE MALEATE 0.2 MG TAB PO SCH (19:23)
[2023-08-27] MEDS: BENZOCAINE 20% SPRY 85 APPLN/85 GM CAN EXT PRN (19:23)
[2023-08-27] MEDS: GABAPENTIN 800 MG TAB PO SCH (19:23)
[2023-08-27] MEDS: oxyCODONE/ACETAMINOPHEN 5mg/325mg TAB PO PRN (20:00)
[2023-08-27] MEDS: DOCUSATE SODIUM 100 MG CAP PO SCH (22:24)
[2023-08-28 07:14] LABS: Hematocrit (blood only) 24.3 % (37.0-47.0); Hemoglobin 6.9 g/dl (12.0-16.0)
--- NOTE | 2023-08-28 07:43 | Anesthesia Procedure Note ---
Date of Service August 28, 2023 Anesthesia Post Epidural Note Vital Signs Vital Signs: Temp Pulse Resp BP Pulse Ox O2 Del Method 36.9 C 76 18 116/82 99 Room Air 08/28/23 04:15 08/28/23 04:15 08/28/23 04:15 08/28/23 04:15 08/28/23 04:15 08/28/23 04:15 Pain Intensity Lower Abdomen: Pain Intensity: 4 Lower Back: Pain Intensity: 7 Notes Mental Status: alert / awake / arousable and participated in evaluation Nausea / Vomiting: adequately controlled Pain: adequately controlled Airway Patency, RR, SpO2: stable & adequate BP & HR: stable & adequate Hydration State: stable & adequate Neuraxial Anesthesia: was administered and sensory block is resolving Anesthetic Complications: no major complications apparent and Pt Satisfied with anesthetic care Epidural: Removed without complications and With tip intact
[2023-08-28] MEDS ORDERED: SODIUM CHLORIDE 0.9% 250 ML IV PRN (08:05)
--- NOTE | 2023-08-28 08:11 | Obstetrical Progress Note ---
Date of Service August 28, 2023 Assessment & Plan (1) Anemia: Day 1 status post vaginal delivery. Patient with acute bleeding secondary to atony postdelivery with a total blood loss of 750 mL. Hemoglobin at admission was 9.1. Repeat hemoglobin this morning was 6.9. Discussed indications for a transfusion including with hemoglobin of less than 7 and symptoms related to anemia. Patient was agreeable and consent forms reviewed and signed. Patient otherwise doing well. Bleeding is minimal at present Anemia type: unspecified type Qualified Code(s): D64.9 - Anemia, unspecified (2) Encounter for care and examination after delivery: Subjective Ambulation: ambulating normally Voiding: no voiding problems Passing Gas:: Yes Diet Tolerance:: regular diet Lochia:: Moderate Feeding Type:: breast feeding Reporting mild anemia symptoms including dizziness Physical Exam Constitutional WD/WN, vitals as above Respiratory normal respiratory effort; no respiratory distress and no labored breathing Gastrointestinal (Abdomen) Inspection/Auscultation: abdomen normal to inspection; abdomen not distended Percussion/Palpation: abdomen soft; abdomen nontender, no guarding and abdomen not rigid Genitourinary OB Exam Abdomen: + fundal height Fundus: + firm and + relation to umbilicus (Below); not tender or not boggy Results & Data Vital Signs (Past 12 Hours) Vital Signs Temp Pulse Pulse Resp BP BP Pulse Ox 08/28/23 04:15 36.9 C 76 18 116/82 99 08/27/23 22:49 37.4 C 91 H 18 119/78 99 08/27/23 22:24 102 H 103/59 L 08/27/23 22:09 88 115/53 L 08/27/23 21:53 99 H 112/52 L 08/27/23 21:38 100 H 113/59 L 08/27/23 21:24 100 H 108/69 08/27/23 21:09 98 H 106/59 L 08/27/23 20:54 100 H 108/61 08/27/23 20:39 98 H 121/68 08/27/23 20:09 90 122/57 L O2 Del Method 08/28/23 04:15 Room Air 08/27/23 22:49 Room Air 08/27/23 22:24 08/27/23 22:09 08/27/23 21:53 08/27/23 21:38 08/27/23 21:24 08/27/23 21:09 08/27/23 20:54 08/27/23 20:39 08/27/23 20:09
[2023-08-28] MEDS: FERROUS SULFATE 325 MG TAB PO SCH (08:47)
[2023-08-28] MEDS: PRENATAL VITAMIN 1 TAB PO SCH (08:47)
[2023-08-28] MEDS: DIPHTHER/TETAN/PERTUS Vaccine (Tdap, Adol/Adult) 0.5mL IM ONE (16:23)
[2023-08-28] MEDS: bisacodyL 5 MG TABEC PO SCH (20:09)
[2023-08-28 23:06] VITALS: RESP 16; TEMP 97.7; O2SAT 98
[2023-08-29 06:46] LABS: Hematocrit (blood only) 28.5 % (37.0-47.0); Hemoglobin 8.5 g/dl (12.0-16.0)
--- NOTE | 2023-08-29 08:11 | Obstetrical Progress Note ---
Date of Service August 29, 2023 Assessment & Plan (1) state: Appropriate Hgb after transfusion, feeling well, DC home today. Subjective Ambulation: ambulating normally Voiding: no voiding problems Passing Gas:: Yes Diet Tolerance:: regular diet Lochia:: Small Feeding Type:: bottle feeding Current Pain Level(1-10): 0 Physical Exam Constitutional WD/WN, vitals as above Eyes PERRL, conjunctivae normal, anicteric sclerae ENMT external ear and nose normal, oropharynx normal Neck trachea midline, no thyromegaly Respiratory normal respiratory effort and able to speak in complete sentences; no respiratory distress, no labored breathing and does not use accessory muscles Cardiovascular Rate/Rhythm: regular rate and regular rhythm Extremities: no calf tenderness and no pedal edema Chest (Breasts) Breast: normal inspection of breasts Gastrointestinal (Abdomen) Inspection/Auscultation: abdomen normal to inspection; abdomen not distended Musculoskeletal no cyanosis or clubbing, extremities motor strength 5/5 Skin no rashes, warm and dry Neurologic patellar DTR's 2+ bilat, sensation intact Psychiatric A+Ox3, euthymic affect Genitourinary Speculum/Bimanual Exam: uterus nontender OB Exam Abdomen: + fundal height (at umbilicus) Fundus: + firm Results & Data Vital Signs (Past 12 Hours) Vital Signs Temp Pulse Resp BP Pulse Ox O2 Del Method 08/28/23 23:05 97.7 F 64 16 114/90 98 Room Air 08/28/23 20:15 98.4 F 71 18 127/86
[2023-08-29 10:22] VITALS: BP 124/87; PULSE 84
== END 2023-08-29 12:00 | disposition home or self-care (01) | DRG 807 ==
LOC: 4S1 08:04 → 4E2 23:24